=== PATIENT | female | born 1955 | race Native Hawaiian/Other Pacific Islander ===

== ENCOUNTER 2021-01-10 08:24 | Outpatient (CLI) | payer OTHER ==
[~2021-01-10 08:24] MED LIST: BENICAR40 MG PO; GLIM2TAB PO; JANUMET1 TA1 PO; SIMV40TA57 PO; VENLAFAXINE75 M2 PO
== END 2021-01-10 19:53 | disposition home or self-care (01) ==
LOC: US 08:24
PROVIDERS: ATTEND Internal Medicine
DX: N18.31 Chronic kidney disease, stage 3a (principal)

== ENCOUNTER 2021-02-07 12:18 | Emergency (ER) | payer OTHER ==
[~2021-02-07] VITALS: Ht 162.6 cm; Wt 74.4 kg
[2021-02-07 12:31] VITALS: BP 192/85; TEMP 98
== END 2021-02-07 14:24 | disposition home or self-care (01) ==
LOC: ED 12:18
DX: J06.9 Acute upper respiratory infection, unspecified (principal); Z20.822 Contact with and (suspected) exposure to COVID-19
CPT/HCPCS: 87502; 87635; 99283; U0003

== ENCOUNTER 2021-11-12 09:58 | Outpatient (CLI) | payer OTHER ==
[~2021-11-12 09:58] MED LIST changes: +ASA LOW STR81 MG PO; +CYCL10TA35 PO; +HYDR25TA60 PO; +JANUMET XR1 TA1 PO; +MELO-13 PO; +SIMV40TA57; +UNITHROID50 MCG OR
== END 2021-11-12 19:59 | disposition home or self-care (01) ==
LOC: MAMMO 09:58
PROVIDERS: ATTEND Internal Medicine
DX: Z12.31 Encounter for screening mammogram for malignant neoplasm of breast (principal)

== ENCOUNTER 2022-04-29 11:36 | Outpatient (CLI) | payer OTHER ==
[2022-04-29 12:03] LABS: PLATELET COUNT 203 K/uL (152-353)
[2022-04-29 13:17] LABS: POTASSIUM 4.6 mmol/L (3.6-5.2)
== END 2022-04-29 19:24 | disposition home or self-care (01) ==
LOC: LAB 11:36
PROVIDERS: ATTEND Internal Medicine
DX: E11.9 Type 2 diabetes mellitus without complications (principal); E03.8 Other specified hypothyroidism
CPT/HCPCS: 80053; 80061; 81002; 83036; 84439; 84443; 85027

== ENCOUNTER 2022-10-13 13:24 | Outpatient (CLI) | payer OTHER ==
[2022-10-13 13:42] LABS: PLATELET COUNT 192 K/uL (152-353)
[2022-10-13 14:11] LABS: POTASSIUM 4.5 mmol/L (3.6-5.2)
== END 2022-10-13 19:16 | disposition home or self-care (01) ==
LOC: LAB 13:24
PROVIDERS: ATTEND Internal Medicine
DX: E11.9 Type 2 diabetes mellitus without complications (principal); E03.8 Other specified hypothyroidism; E78.49 Other hyperlipidemia; N18.31 Chronic kidney disease, stage 3a; I12.9 Hypertensive chronic kidney disease with stage 1 through stage 4 chronic kidney disease, or unspecified chronic kidney disease
CPT/HCPCS: 80053; 80061; 81002; 82043; 83036; 84439; 84443; 85027

== ENCOUNTER 2022-11-16 09:11 | Outpatient (CLI) | payer OTHER | END 2022-11-16 20:16 | disposition home or self-care (01) | LOC: MAMMO 09:11 | PROVIDERS: ATTEND Internal Medicine | DX: Z12.31 Encounter for screening mammogram for malignant neoplasm of breast (principal) ==